=== PATIENT | male | born 1975 | race Two or more races ===

== ENCOUNTER 2022-10-24 18:16 | Emergency (ER) | payer OTHER ==
[~2022-10-24] VITALS: Ht 162.6 cm; Wt 99.8 kg
[2022-10-24] MEDS ORDERED: ADMELOG100 UNIT/1 (18:43)
[2022-10-24] MEDS ORDERED: INSULIN GL100 UNIT/3 (18:43)
[2022-10-24] MEDS ORDERED: LOSARTAN POTAS100 MG PO (18:43)
== END 2022-10-24 20:46 | disposition home or self-care (01) ==
LOC: ER 18:16
DX: U07.1 COVID-19 (principal); R53.81 Other malaise